=== PATIENT | female | born 1960 | race Caucasian/White ===

== ENCOUNTER 2021-02-11 15:37 | Observation (INO) ==
--- NOTE | 2021-02-11 16:19 | CT Scan Report ---
HEAD CT NONCONTRAST CT DOSE: 537.48 mGy.cm HISTORY: Stroke symptoms. TECHNIQUE: Multiaxial CT images of the head were performed without the use of intravenous contrast. A utomated exposure control was utilized for this study. A dose lowering technique was utilized adheri ng to the principles of ALARA. Comparison: None. Findings: The paranasal sinuses and mastoid air cells are clear. The calvarium and skull base are int act. The ventricles and sulci are within normal limits. There is no mass, hematoma, midline shift, or acute infarct. Impression: No acute intracranial abnormality. ACT 112: Negative or not required by law. Electronically signed by: Adrián Elias M.D. 02/11/2021 4:17 PM
[2021-02-11 16:56] LABS: Hematocrit (blood only) 38.7 % (37-47); Hemoglobin 13.2 g/dL (12.0-16.0); Mean Corpuscular Hemoglobin 30.5 pg (25-34); Mean Corpuscular Hgb Conc 34.1 g/dL (32-36); Mean Corpuscular Volume 89.4 fL (80-100); Mean Platelet Volume 11.9 fL (7.4-10.4); Platelet Count 273 K/uL (130-400); RDW Coefficient of Variation 13.1 % (11.5-14.5); RDW Standard Deviation 43.4 fL (36.4-46.3); Red Blood Count 4.33 M/uL (4.2-5.4); White Blood Count 8.67 K/uL (4.8-10.8)
--- NOTE | 2021-02-11 16:57 | Emergency Department Note ---
Impression & Plan Stroke-like symptoms, Cerebrovascular accident, HTN (hypertension) ED Provider Note NAME: NILSA HALE AGE: 60 SEX: F : 1960 ARRIVES VIA: Walk-In INFORMANT: Patient ED PROVIDER(S): Darian Joshi DO CHIEF COMPLAINT: Right-sided numbness with trouble walking HPI: Patient is a 60-year-old female who presents the to the ER for right-sided paresthesias with trouble walking. Symptoms started yesterday morning around 9 AM. She notes she cannot feel her right side and consequently she is having trouble walking. Includes the entire right leg right arm and right face. She denies any change in vision or headache. No chest pain or shortness of breath. No nausea, vomiting, or diarrhea. No dysuria, urgency, or frequency. No other exacerbating or remitting factors. She is never had this before. History of hyperlipidemia and is a smoker. ROS: See above HPI for pertinent positives & negatives. A total of 10 systems reviewed and were otherwise negative. PAST MEDICAL HISTORY:See Below PAST SURGICAL HISTORY:See Below FAMILY HISTORY:See Below SOCIAL HISTORY:See Below HOME MEDICATIONS:See Below ALLERGIES:See Below VITALS:See Below PHYSICAL EXAMINATION: GENERAL: Sitting up in bed, alert, well appearing, well nourished, no distress, non-toxic EYE EXAM: normal conjunctiva. PERRL and EOM's intact. OROPHARYNX: no exudate, no erythema, lips, buccal mucosa, and tongue normal and mucous membranes are moist NECK: supple, no nuchal rigidity, no adenopathy, non-tender LUNGS: Clear to auscultation. Normal chest wall mechanics HEART: no murmurs, S1 normal and S2 normal ABDOMEN: abdomen soft, non-tender, normo-active bowel sounds, no masses, no rebound or guarding. UPPER EXTREMITIES: upper extremities are grossly normal. LOWER EXTREMITIES: No pitting edema. NEURO EXAM: Normal sensorium, cranial nerves II-XII intact, normal speech, no weakness of arms, no weakness of legs. No drift. Finger to nose intact. Gross sensation intact. [id number] intact. Rapid alternating movements are extremities intact. MEDICAL DECISION MAKING: Patient is a 60-year-old female who presents ER right-sided paresthesias. Trouble walking. IV was established blood work obtained. Labs show no significant leukocytosis or anemia. INR was unremarkable. BMP along with LFTs bilirubin was unremarkable. Troponin was negative. TSH elevated. Free T4 was negative. Covid was negative. CT as well as CT angio of the head and neck showed no culprit lesion. Patient was updated bedside. Symptoms have been present since yesterday. She was discussed with hospitalist and admitted for further work-up of her likely stroke. Pressure was elevated and will continue to tolerate elevated pressures. Triage Nursing notes reviewed. Limited review of prior medical records performed Vital Signs: reviewed and remarkable for HTN Differential diagnosis: Differential Diagnosis includes but is not limited to ischemic Stroke, hemorrhagic stroke, bells palsy, mass, neoplasm, migraine headache, seizure, subarachnoid hemorrhage, TIA, and transient global amnesia. ER treatment provided: See below Diagnostics interpreted by me: ECG: Sinus rhythm rate 76 Normal axis No PVCs QTC 450 Cardiac Monitoring: An order was placed for continuous cardiac monitoring. The monitor shows a rate of 60 with sinus rhythm. Laboratory studies: As stated above and show below. Imaging studies: CT of the head, as well as CTA of the head and neck are unremarkable Consultation(s): Discussed with the hospitalist for further evaluation Procedures: none Critical Care: None Past Med/Surg History Medical History (Updated 02/11/21 @ 22:57 by Darian Joshi DO) Endometriosis Hypothyroidism Tobacco use disorder Surgical History (Updated 02/11/21 @ 19:21 by Ashish Puente MD) History of ovarian resection right Social History (Updated 02/11/21 @ 19:18 by Ashish Puente MD) Smoking Status: Current every day smoker packs per day: 2; Hx Alcohol Use: No Hx Substance Use: No Preferred Language: Mosotho Feels Safe at Home: Yes Allergies Allergies Allergy/AdvReac Type Severity Reaction Status Date / Time latex Allergy Mild ITCHY RASH Verified 02/11/21 18:31 codeine AdvReac Intermediate Vomiting Verified 02/11/21 18:31 ENVIRONMENTAL Allergy Severe ALL Uncoded 02/11/21 18:31 POLLENS, MOLDS, DUST--CAN TRIGGER AN ASTHMA ATTACK. Home Meds Home Medications Medication Instructions Recorded Confirmed Cloves Tabs 1 tab PO DAILY 02/11/21 02/11/21 cholecalciferol (vitamin D3) 0 mcg PO DAILY 02/11/21 02/11/21 [Vitamin D3] elderberry fruit and flower 1 cap PO DAILY 02/11/21 02/11/21 levothyroxine 75 mcg PO DAILY 02/11/21 02/11/21 zinc sulfate 50 mg PO DAILY 02/11/21 02/11/21 Results & Data (ED) Vital Signs Vital Signs - 24 hr 02/11/21 15:41 02/11/21 16:36 02/11/21 16:39 Temperature 36.9 C Temperature Source Temporal Artery Scan Pulse Rate 80 75 79 Pulse Rate [Right Finger] Pulse Rate from SpO2 Sensor 75 79 Pulse Rhythm Respiratory Rate 18 21 16 Respiratory Effort / Characteristics Non-Labored Respiratory Depth Normal Blood Pressure 165/87 H 172/111 H Blood Pressure [Right Arm] Blood Pressure Mean 113 131 Blood Pressure Mean [Right Arm] Pulse Oximetry 99 100 100 Oxygen Delivery Method Room Air Sepsis Recent Fever Within 48 Hours No Sepsis New/Unexplained Change in Mental Status No Sepsis Action Taken by Nursing No Action Required 02/11/21 17:00 02/11/21 17:01 02/11/21 19:42 Temperature Temperature Source Pulse Rate 82 73 Pulse Rate [Right Finger] 69 Pulse Rate from SpO2 Sensor Pulse Rhythm Respiratory Rate 17 21 16 Respiratory Effort / Characteristics Respiratory Depth Blood Pressure 196/103 H Blood Pressure [Right Arm] 160/100 H Blood Pressure Mean 134 Blood Pressure Mean [Right Arm] 120 Pulse Oximetry 99 Oxygen Delivery Method Room Air Sepsis Recent Fever Within 48 Hours Sepsis New/Unexplained Change in Mental Status Sepsis Action Taken by Nursing 02/11/21 21:13 02/11/21 22:14 Temperature Temperature Source Pulse Rate 64 Pulse Rate [Right Finger] 64 Pulse Rate from SpO2 Sensor Pulse Rhythm Regular Respiratory Rate 18 Respiratory Effort / Characteristics Respiratory Depth Blood Pressure Blood Pressure [Right Arm] 170/88 H 157/91 H Blood Pressure Mean Blood Pressure Mean [Right Arm] 115 113 Pulse Oximetry 98 Oxygen Delivery Method Room Air Sepsis Recent Fever Within 48 Hours Sepsis New/Unexplained Change in Mental Status Sepsis Action Taken by Nursing Laboratory Data Result diagrams: 02/11/21 16:40 02/11/21 16:40 Lab Results 02/11/21 02/11/21 02/11/21 Range/Units 16:40 16:40 16:40 WBC 8.67 (4.8-10.8) K/uL RBC 4.33 (4.2-5.4) M/uL Hgb 13.2 (12.0-16.0) g/dL Hct 38.7 (37-47) % MCV 89.4 (80-100) fL MCH 30.5 (25-34) pg MCHC 34.1 (32-36) g/dL RDW Std Deviation 43.4 (36.4-46.3) fL RDW Coeff of [place] 13.1 (11.5-14.5) % Plt Count 273 (130-400) K/uL MPV 11.9 H (7.4-10.4) fL PT 10.5 (9.0-12.0) Seconds INR 1.0 (0.9-1.1) APTT 24.4 (21.0-31.0) Seconds PTT Ratio 0.9 Sodium 138 (136-145) mmol/L Potassium 3.7 (3.5-5.1) mmol/L Chloride 107 (98-107) mmol/L Carbon Dioxide 25 (21-32) mmol/L Anion Gap 6.0 (3-11) BUN 9 (7-18) mg/dl Creatinine 0.62 (0.6-1.2) mg/dl Est Cr Clr Drug Dosing 76.3 ml/min Est GFR ( Amer) 113.6 Est GFR (Non-Af Amer) 98.0 BUN/Creatinine Ratio 15.2 (10-20) Glucose 98 (70-99) mg/dl Calcium 9.3 (8.5-10.1) mg/dl Magnesium 2.0 (1.8-2.4) mg/dl Total Bilirubin 0.5 (0.2-1) mg/dl AST 14 L (15-37) U/L ALT 19 (12-78) U/L Alkaline Phosphatase 147 H (45-117) U/L Troponin I < 0.015 (0-0.045) ng/ml Total Protein 7.4 (6.4-8.2) gm/dl Albumin 4.2 (3.4-5.0) gm/dl Globulin 3.2 (2.5-4.0) gm/dl Albumin/Globulin Ratio 1.3 (0.9-2) TSH 9.030 H (0.300-4.500) uIu/ml Free T4 1.05 (0.8-1.6) ng/dl COVID-19 Eval Order SARS-CoV-2 (PCR) (Negative) Influenza Type A (PCR) (Neg) Influenza Type B (PCR) (Neg) RSV (RT-PCR) (Neg) 02/11/21 02/11/21 Range/Units 18:45 18:45 WBC (4.8-10.8) K/uL RBC (4.2-5.4) M/uL Hgb (12.0-16.0) g/dL Hct (37-47) % MCV (80-100) fL MCH (25-34) pg MCHC (32-36) g/dL RDW Std Deviation (36.4-46.3) fL RDW Coeff of [place] (11.5-14.5) % Plt Count (130-400) K/uL MPV (7.4-10.4) fL PT (9.0-12.0) Seconds INR (0.9-1.1) APTT (21.0-31.0) Seconds PTT Ratio Sodium (136-145) mmol/L Potassium (3.5-5.1) mmol/L Chloride (98-107) mmol/L Carbon Dioxide (21-32) mmol/L Anion Gap (3-11) BUN (7-18) mg/dl Creatinine (0.6-1.2) mg/dl Est Cr Clr Drug Dosing ml/min Est GFR ( Amer) Est GFR (Non-Af Amer) BUN/Creatinine Ratio (10-20) Glucose (70-99) mg/dl Calcium (8.5-10.1) mg/dl Magnesium (1.8-2.4) mg/dl Total Bilirubin (0.2-1) mg/dl AST (15-37) U/L ALT (12-78) U/L Alkaline Phosphatase (45-117) U/L Troponin I (0-0.045) ng/ml Total Protein (6.4-8.2) gm/dl Albumin (3.4-5.0) gm/dl Globulin (2.5-4.0) gm/dl Albumin/Globulin Ratio (0.9-2) TSH (0.300-4.500) uIu/ml Free T4 (0.8-1.6) ng/dl COVID-19 Eval Order CovFluRsv at [facility] SARS-CoV-2 (PCR) NEGATIVE (Negative) Influenza Type A (PCR) Negative (Neg) Influenza Type B (PCR) Negative (Neg) RSV (RT-PCR) Negative (Neg) Administered Medications Discontinued Medications Aspirin (Aspirin 81 Mg Chew) 324 mg PO NOW STA Stop: 02/11/21 19:16 Last Admin: 02/11/21 19:42 Dose: 324 mg Documented by: [id number] Ioversol (Optiray 320 125ml) 120 ml IV ONCE ONE Stop: 02/11/21 17:55 Last Admin: 02/11/21 17:55 Dose: 120 ml Documented by: [id number] Imaging Data Radiologist's Impression: Chest X-Ray 02/11/21 15:44 XR chest 1V portable CLINICAL HISTORY: stroke alert COMPARISON STUDY: No previous studies for comparison. FINDINGS: Lung volumes are normal. Lungs are clear. There is no pneumothorax or pleural effusion. Cardiac size is normal. Mediastinal contours are normal. There is no evidence for pulmonary edema. IMPRESSION: No acute cardiopulmonary findings. ACT 112: Negative or not required by law. Electronically signed by: Abdelrahman Garibay M.D. 02/11/2021 5:[address] 02/11/21 15:[address] DOSE: 537.48 mGy.cm HISTORY: Stroke symptoms. TECHNIQUE: Multiaxial CT images of the head were performed without the use of intravenous contrast. Automated exposure control was utilized for this study. A dose lowering technique was utilized adhering to the principles of ALARA. Comparison: None. Findings: The paranasal sinuses and mastoid air cells are clear. The calvarium and skull base are intact. The ventricles and sulci are within normal limits. There is no mass, hematoma, midline shift, or acute infarct. Impression: No acute intracranial abnormality. ACT 112: Negative or not required by law. Electronically signed by: Adrián Elias M.D. 02/11/2021 4:17 PM Head CTA 02/11/21 16:57 CTA ANGIOGRAPHY OF THE HEAD CLINICAL HISTORY: Cerebrovascular accident. Right arm numbness. COMPARISON STUDY: Head CT performed earlier today. TECHNIQUE: Helical axial images of the head were obtained following uneventful intravenous administration of 120 cc of Optiray 320. Sagittal and coronal reconstructions were viewed as well as maximal intensity projections on an independent 3-D workstation. Automated exposure control was utilized for the study. A dose lowering technique was utilized adhering to the principles of ALARA. CT DOSE: 457.68 mGy.cm FINDINGS: No acute intracranial hemorrhage, midline shift or mass effect is present. Brain volume is normal. Ventricular system is normal. Basal cisterns are patent. There are no extra axial collections. The bilateral M1, M2, A1 and A2 segments are patent. There is no intracranial aneurysm. No central vessel occlusion is noted. There is no dissection within the intracranial vessels. Left vertebral artery is dominant. Posterior circulation is intact. IMPRESSION: Unremarkable CTA of the head. No central vessel occlusion. No intracranial aneurysm. ACT 112: Negative or not required by law. Electronically signed by: Abdelrahman Garibay M.D. 02/11/2021 6:13 PM Neck CTA 02/11/21 16:57 CT ANGIOGRAPHY OF THE NECK WITH CONTRAST CLINICAL HISTORY: Right arm numbness numbness. Cerebrovascular accident. COMPARISON STUDY: No previous studies for comparison. Technique: CT angiography of the carotid and vertebral arteries was obtained using [employer] 320 IV and 3D reconstruction on an independent workstation. NASCET criteria was utilized. Automated exposure control was utilized for the study. A dose lowering technique was utilized adhering to the principles of ALARA. Findings: No cervical lymphadenopathy is present. No cervical spine fracture is noted. The thyroid gland is heterogeneous. Note is made of mild emphysema within visualized portions of the lung apices. There are multiple small subpleural upper lobe nodules that measure up to 5 mm. There is mild plaque of the visualized portions of the aortic arch. The bilateral common carotid, cervical internal carotid and vertebral arteries are patent although the proximal right vertebral artery is suboptimally assessed due to contrast within the adjacent veins. There is no dissection within these vessels. No significant stenosis is noted. There is mild plaque within the proximal left internal carotid artery. The CTA of the head will be reported separately. The left vertebral artery is dominant. IMPRESSION: 1. No stenosis or dissection within the major vessels of the neck. Mild atherosclerotic plaque. 2. Mild emphysema and numerous small subpleural nodules within the lung apices. Nonemergent chest CT is recommended for further evaluation. ACT 112: Negative or not required by law. Electronically signed by: Abdelrahman Garibay M.D. 02/11/2021 6:08 PM Discharge Plan Visit Data Chief Complaint: Stroke/CVA Symptoms Stated Complaint: POSSIBLE STROKE-RIGHT SIDE IS NUMB-DRAGGING R FOOT ED Provider: Darian Joshi Discharge Problem: Stroke-like symptoms, Cerebrovascular accident, HTN (hypertension) Forms Stand Alone Forms: My [facility] [employer] Prescriptions Prescriptions: No Action levothyroxine 75 mcg Tablet 75 mcg PO DAILY RF: 0 cholecalciferol (vitamin D3) [Vitamin D3] 25 mcg (1,000 unit) Capsule 0 mcg PO DAILY RF: 0 zinc sulfate 50 mg zinc (220 mg) Capsule 50 mg PO DAILY RF: 0 elderberry fruit and flower 460-115 mg Capsule 1 cap PO DAILY RF: 0 Cloves Tabs 1 tab PO DAILY RF: 0 Discharge Problem: Cerebrovascular accident Qualifiers: CVA mechanism: unspecified Qualified Code(s): I63.9 - Cerebral infarction, unspecified HTN (hypertension) Qualifiers: Hypertension type: unspecified Qualified Code(s): I10 - Essential (primary) hypertension
[2021-02-11 17:06] LABS: Partial Thromboplastin Ratio 0.9; Partial Thromboplastin Time 24.4 Seconds (21.0-31.0); Prothrombin Time 10.5 Seconds (9.0-12.0)
[2021-02-11 17:13] LABS: Alanine Aminotransferase 19 U/L (12-78); Albumin Level 4.2 gm/dl (3.4-5.0); Aspartate Aminotransferase 14 U/L (15-37); BUN Creatinine Ratio 15.2 (10-20); Blood Urea Nitrogen 9 mg/dl (7-18); Calcium 9.3 mg/dl (8.5-10.1); Carbon Dioxide 25 mmol/L (21-32); Chloride 107 mmol/L (98-107); Creatinine Clr Calc Pharmacy 76.3 ml/min; Est GFR (African American) 113.6; Glucose 98 mg/dl (70-99); Potassium 3.7 mmol/L (3.5-5.1); Sodium 138 mmol/L (136-145)
[2021-02-11 17:17] LABS: Albumin Globulin Ratio 1.3 (0.9-2); Alkaline Phosphatase 147 U/L (45-117); Bilirubin,Total 0.5 mg/dl (0.2-1); Globulin 3.2 gm/dl (2.5-4.0); Total Protein 7.4 gm/dl (6.4-8.2); Troponin I < 0.015 ng/ml (0-0.045)
--- NOTE | 2021-02-11 17:22 | XRay Report ---
XR chest 1V portable CLINICAL HISTORY: stroke alert COMPARISON STUDY: No previous studies for comparison. FINDINGS: Lung volumes are normal. Lungs are clear. There is no pneumothorax or pleural effusion. Car diac size is normal. Mediastinal contours are normal. There is no evidence for pulmonary edema. IMPRESSION: No acute cardiopulmonary findings. ACT 112: Negative or not required by law. Electronically signed by: Abdelrahman Garibay M.D. 02/11/2021 5:20 PM
[2021-02-11] MEDS ORDERED: OPTIRAY 320 125ml IV ONE (17:54)
--- NOTE | 2021-02-11 18:09 | CT Scan Report ---
CT ANGIOGRAPHY OF THE NECK WITH CONTRAST CLINICAL HISTORY: Right arm numbness numbness. Cerebrovascular accident. COMPARISON STUDY: No previous studies for comparison. Technique: CT angiography of the carotid and vertebral arteries was obtained using [employer] 320 IV and 3D reconstruction on an independent workstation. NASCET criteria was utilized. Automated exposure c ontrol was utilized for the study. A dose lowering technique was utilized adhering to the principles of ALARA. Findings: No cervical lymphadenopathy is present. No cervical spine fracture is noted. The thyroid gl and is heterogeneous. Note is made of mild emphysema within visualized portions of the lung apices. T here are multiple small subpleural upper lobe nodules that measure up to 5 mm. There is mild plaque o f the visualized portions of the aortic arch. The bilateral common carotid, cervical internal carotid and vertebral arteries are patent although the proximal right vertebral artery is suboptimally asses sed due to contrast within the adjacent veins. There is no dissection within these vessels. No signif icant stenosis is noted. There is mild plaque within the proximal left internal carotid artery. The C TA of the head will be reported separately. The left vertebral artery is dominant. IMPRESSION: 1. No stenosis or dissection within the major vessels of the neck. Mild atherosclerotic plaque. 2. Mild emphysema and numerous small subpleural nodules within the lung apices. Nonemergent chest CT is recommended for further evaluation. ACT 112: Negative or not required by law. Electronically signed by: Abdelrahman Garibay M.D. 02/11/2021 6:08 PM
--- NOTE | 2021-02-11 18:14 | CT Scan Report ---
CTA ANGIOGRAPHY OF THE HEAD CLINICAL HISTORY: Cerebrovascular accident. Right arm numbness. COMPARISON STUDY: Head CT performed earlier today. TECHNIQUE: Helical axial images of the head were obtained following uneventful intravenous administr ation of 120 cc of Optiray 320. Sagittal and coronal reconstructions were viewed as well as maximal i ntensity projections on an independent 3-D workstation. Automated exposure control was utilized for the study. A dose lowering technique was utilized adhering to the principles of ALARA. CT DOSE: 457.68 mGy.cm FINDINGS: No acute intracranial hemorrhage, midline shift or mass effect is present. Brain volume is normal. Ventricular system is normal. Basal cisterns are patent. There are no extra axial collections . The bilateral M1, M2, A1 and A2 segments are patent. There is no intracranial aneurysm. No central vessel occlusion is noted. There is no dissection within the intracranial vessels. Left vertebral art harmeet is dominant. Posterior circulation is intact. IMPRESSION: Unremarkable CTA of the head. No central vessel occlusion. No intracranial aneurysm. ACT 112: Negative or not required by law. Electronically signed by: Abdelrahman Garibay M.D. 02/11/2021 6:13 PM
--- NOTE | 2021-02-11 19:05 | History & Physical Report ---
Date of Service February 11, 2021 Assessment & Plan (1) Stroke-like symptoms: Ongoing symptoms of right-sided paresthesias - ?CVA versus hypertensive encephalopathy MRI brain without contrast Blood pressure management as below TTE HbA1c and lipid panel with a.m. labs PT/OT. No need for SLT evaluation. Consult neurology (2) Abnormal gait: No objective motor or coordination deficit-suspect her gait is secondary to sensory ataxia from her numbness. PT/OT (3) Elevated blood pressure reading: Blood pressure management dependent on MRI findings. If stroke seen will allow for permissive hypertension. If no findings on MRI will treat systolic blood pressure > 180 with hydralazine overnight. (4) Tobacco use disorder: 2 pack/day smoker. Patient declines nicotine patch. 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 (5) Pulmonary nodules: Recommend outpatient follow-up for this. Discussed with patient. (6) Hypothyroidism: Add TSH to prior labs. Continue levothyroxine 75 mcg p.o. daily (7) DVT prophylaxis: SCDs Admission and Anticipated Discharge Date Admission Date: February 11, 2021 History of Present Illness Chief Complaint: Right sided paresthesias Primary Care Provider: Keegan Wilson Elle Mccann is a 60-year-old female who presents to the ER with right-sided face, arm and right leg numbness. Symptoms started yesterday at 8:30 AM. Initially lasted for 10 to 15 minutes and subsequently fully resolved. She had a total of 5 similar episodes over the course of yesterday. When she went to bed last night her symptoms became persistent and she is still having them at the present time. She does note 1 associated room spinning/dizzy episode around 10 AM today which resolved on sitting down and lasted for any 5 minutes - this does not appear to be associated with any worsening of her other symptoms and was similar to a sensation she had when she had an infection a few years ago. She denies any headache, change in speech/vision/hearing, no facial droop or muscle weakness. She does note dragging her foot when she walks but no weakness. 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 She reports hyperlipidemia which is untreated due to her previous doctor not believing in statins. No significant family history of cardiovascular disease. In the ER she underwent CT head and CT angiogram head/neck were unremarkable. She was referred to medicine for admission ongoing management of left-sided paresthesia and difficulty walking. Allergies Allergy/AdvReac Type Severity Reaction Status Date / Time latex Allergy Mild ITCHY RASH Verified 02/11/21 18:31 codeine AdvReac Intermediate Vomiting Verified 02/11/21 18:31 ENVIRONMENTAL Allergy Severe ALL Uncoded 02/11/21 18:31 POLLENS, MOLDS, DUST--CAN TRIGGER AN ASTHMA ATTACK. Home Medications Medication Instructions Recorded Confirmed Type Cloves Tabs 1 tab PO DAILY 02/11/21 02/11/21 History cholecalciferol (vitamin D3) 0 mcg PO DAILY 02/11/21 02/11/21 History [Vitamin D3] elderberry fruit and flower 1 cap PO DAILY 02/11/21 02/11/21 History levothyroxine 75 mcg PO DAILY 02/11/21 02/11/21 History zinc sulfate 50 mg PO DAILY 02/11/21 02/11/21 History Past Med/Surg History Medical History (Updated 02/11/21 @ 22:57 by Darian Joshi DO) Endometriosis Hypothyroidism Tobacco use disorder Surgical History (Updated 02/11/21 @ 19:21 by Ashish Puente MD) History of ovarian resection right Social History (Updated 02/11/21 @ 19:18 by Ashish Puente MD) Smoking Status: Current every day smoker packs per day: 2; Hx Alcohol Use: No Hx Substance Use: No Preferred Language: Nigerian Feels Safe at Home: Yes Review of Systems Review of Systems: All systems reviewed & are unremarkable except as noted in HPI & below Physical Exam Constitutional: WD/WN, vitals as above Eyes: PERRL, conjunctivae normal, anicteric sclerae no nystagmus ENMT: external ear and nose normal, oropharynx normal Neck: trachea midline, no thyromegaly Respiratory: normal respiratory effort, lungs clear to auscultation Cardiovascular: RRR, no murmur, no edema Gastrointestinal (Abdomen): normal bowel sounds, soft, nontender, no hepatosplenomegaly Musculoskeletal: no cyanosis or clubbing, extremities motor strength 5/5 Skin: no rashes, warm and dry Neurologic: moves all extremities and awake; no focal motor deficits and not confused Speech / Cognition: normal speech Motor/Sensory: + sensory deficit (Non-dermatomal right arm and leg numbness, right face numbness); no tremor and no pronator drift Cranial Nerves: PERRL, EOM intact bilaterally, normal facial strength, tongue midline, normal hearing, able to rotate head bilaterally, able to elevate shoulders bilaterally, no nystagmus and symmetric palate elevation Gait: + wide-based gait (right sided) Coordination: normal giqbrt-[id number] test and normal [id number] test Psychiatric: A+Ox3, euthymic affect Genitourinary: no CVA tenderness Results & Data Results & Data ([facility]) Vital Signs (Past 12 Hours) Vital Signs Temp Pulse Resp BP Pulse Ox 02/11/21 17:01 73 21 196/103 H 02/11/21 17:00 82 17 02/11/21 16:39 79 16 100 02/11/21 16:36 75 21 172/111 H 100 02/11/21 15:41 36.9 C 80 18 165/87 H 99 Diagnostic Findings XR chest 1V portable IMPRESSION: No acute cardiopulmonary findings. HEAD CT NONCONTRAST Impression: No acute intracranial abnormality. CT ANGIOGRAPHY OF THE NECK WITH CONTRAST IMPRESSION: 1. No stenosis or dissection within the major vessels of the neck. Mild atherosclerotic plaque. 2. Mild emphysema and numerous small subpleural nodules within the lung apices. Nonemergent chest CT is recommended for further evaluation. Medications Administered ER medications given: None ECG Indication: other (Strokelike symptoms) Rate (beats per minute): 76 Rhythm: normal sinus Findings: no acute ischemic change Comparison ECG Date: no prior available Code Status & VTE Plan Code Status Full VTE Prophylaxis Plan VTE Prophylaxis will be ordered: No Reason for no VTE drug order: Treatment not indicated Reason for no VTE mechanical prophylaxis: Treatment not indicated PG Care Time/CCT Total # of Minutes Spent Total Time Spent with Patient: Total time spent is greater than 50% in coordination of care (as documented) at patient's floor/unit and/or counseling patient: Coding Level of Care Code 11943 OBS Care - Level 3 Diagnoses Stroke-like symptoms R29.90 Abnormal gait R26.9 Elevated blood pressure reading R03.0 Tobacco use disorder F17.200 Pulmonary nodules R91.8 Hypothyroidism E03.9 Hypothyroidism type: acquired DVT prophylaxis Z29.9 (1) Hypothyroidism Hypothyroidism type: acquired Qualified Code(s): E03.9 - Hypothyroidism, unspecified
[2021-02-11] MEDS ORDERED: ASPIRIN 81 MG CHEW PO STA (19:15)
[2021-02-11 19:59] LABS: T4 Free Thyroxine 1.05 ng/dl (0.8-1.6)
[2021-02-11 20:16] LABS: Influenza A virus by PCR Negative (Neg); Influenza B virus by PCR Negative (Neg); RSV by PCR Negative (Neg); SARS CoV2 RNA(COVID-19) InHosp NEGATIVE (Negative)
[2021-02-11] MEDS ORDERED: ATORVASTATIN 40 MG TAB PO SCH (23:15)
[2021-02-11] MEDS ORDERED: ACETAMINOPHEN 325 MG TAB PO PRN (23:45)
[2021-02-11] MEDS ORDERED: PHARMACIST DISCHARGE MED REC CONSULT PRN (23:45)
[2021-02-12] MEDS ORDERED: LEVOTHYROXINE SODIUM 75 MCG TABLET PO SCH (06:30)
--- NOTE | 2021-02-12 07:17 | Magnetic Resonance Report ---
MRI OF THE BRAIN WITHOUT IV CONTRAST CLINICAL HISTORY: Right-sided paresthesias. COMPARISON STUDY: CT of the brain dated 02/11/2021. TECHNIQUE: MRI of the brain was performed utilizing various T1 and T2-weighted sequences in the axial , sagittal, and coronal planes. IV contrast was not administered for this examination. FINDINGS: Brain parenchyma: There is a 12 mm focus of restricted diffusion identified in the posterior left agustina lamus consistent with acute to subacute ischemia. No additional foci of restricted diffusion are iden tified. There is mild subcortical and periventricular microangiopathic disease. There is no hemorrhag e or mass effect. Hamilton-white matter differentiation is preserved. No extra-axial fluid collection is seen. The cerebellar tonsils are normal in configuration. Ventricles, sulci, and cisterns: Normal in configuration. Pituitary and sella: Unremarkable. Intracranial vasculature: Normal flow voids are maintained at the skull base. Orbits: The bony orbits are grossly intact. Orbital contents are normal in appearance. Sinuses and mastoids: Clear. Calvarium: Unremarkable. Cervical cord: Partially visualized cervical spinal cord is normal in morphology and signal intensity . IMPRESSION: 1. Findings are consistent with an acute to subacute lacunar infarct in the posterior left thalamus. 2. No additional foci of acute ischemia are identified. 3. There is no hemorrhage or mass effect. ACT 112: Negative or not required by law. Electronically signed by: Sabino Harris M.D. 02/12/2021 7:16 AM
[2021-02-12 07:52] LABS: Basophils # (auto) 0.02 K/uL (0-0.2); Basophils % (auto) 0.3 %; Eosinophils # (auto) 0.05 K/uL (0-0.5); Eosinophils % (auto) 0.7 %; Hematocrit (blood only) 38.1 % (37-47); Immature Granulocytes # (auto) 0.01 K/uL (0.00-0.02); Immature Granulocytes % (auto) 0.1 %; Lymphocytes % (auto) 19.7 %; Mean Corpuscular Hemoglobin 30.7 pg (25-34); Mean Corpuscular Hgb Conc 34.1 g/dL (32-36); Mean Corpuscular Volume 89.9 fL (80-100); Mean Platelet Volume 11.7 fL (7.4-10.4); Monocytes # (auto) 0.71 K/uL (0.11-0.59); Monocytes % (auto) 9.3 %; Neutrophils # (auto) 5.32 K/uL (1.4-6.5); Neutrophils % (auto) 69.9 %; Platelet Count 262 K/uL (130-400); RDW Coefficient of Variation 13.3 % (11.5-14.5); Red Blood Count 4.24 M/uL (4.2-5.4); White Blood Count 7.61 K/uL (4.8-10.8)
[2021-02-12 08:31] LABS: Estimated Average Glucose 114 mg/dl; Hemoglobin A1C 5.6 % (4.5-5.6)
[2021-02-12 08:35] LABS: BUN Creatinine Ratio 17.8 (10-20); Calcium 9.2 mg/dl (8.5-10.1); Creatinine Clr Calc Pharmacy 77.6 ml/min; Est GFR (African American) 114.2; Est GFR (Non-African American) 98.5; Potassium 3.6 mmol/L (3.5-5.1)
[2021-02-12] MEDS ORDERED: ASPIRIN 81 MG ECTAB PO SCH (09:00)
[2021-02-12] MEDS ORDERED: CHOLECALCIFEROL 1,000 UNITS 25 MCG TAB PO SCH (09:00)
--- NOTE | 2021-02-12 11:12 | Hospitalist Progress Note ---
Date of Service February 12, 2021 Assessment & Plan Admission and Anticipated Discharge Date Admission Date: February 11, 2021 Subjective Attending: Dr. Miguel Patient began having symptoms of weakness 2 to 3 days ago. Yesterday she had complete flaccidness of the right side and was unable to use the right side. S he presented to the emergency department and MRI revealed findings consistent with an acute to subacute lacunar infarct in the posterior left thalamus. On examination, patient has no neurological deficits. She is seen ambulating in the hallways with no gait change. She has no difficulty with rapid alternating movements or cerebellar function. She has no dysphagia and had no difficulty with breakfast. She denies headache. She has no visual changes. She has no acute complaints. Review of Systems Review of Systems: All systems reviewed & are unremarkable except as noted in Subjective Physical Exam Physical Exam: GENERAL : No acute distress EYES: No icterus, gaze conjugate NOSE: No evidence of epistaxis MOUTH: No lesions or candidiasis NECK: Supple LUNGS: Clear to auscultation bilaterally. No adventitious breath sounds. HEART: Regular, rate controlled ABDOMEN: Soft, NT, ND, BS Present EXTREMITIES: No LE edema, pedal pulses intact NEURO: A&OX3 Results & Data Results & Data ([facility]) Vital Signs (Past 12 Hours) Vital Signs Temp Pulse Pulse Resp BP Pulse Ox 02/12/21 07:59 36.8 C 78 18 138/76 99 02/12/21 07:05 69 02/12/21 03:39 36.6 C 73 16 142/72 H 93 02/12/21 00:19 60 02/11/21 23:51 36.6 C 73 18 169/103 H 96 Laboratory Results 02/12/21 07:26 02/12/21 07:26 PG Care Time/CCT Total # of Minutes Spent Total Time Spent with Patient: Total time spent is greater than 50% in coordination of care (as documented) at patient's floor/unit and/or counseling patient: Coding
--- NOTE | 2021-02-12 14:44 | Neurology Consultation ---
Date of Consultation February 12, 2021 Assessment & Plan (1) Thalamic stroke: Elle Mccann is a 60 yo woman w/ PMH of HTN, HLD, hypothyroidism, tobacco abuse and endometriosis who p/t [facility] with acute onset of right-sided numbness. 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 - MRI brain: subacute infarct in the left lateral thalamus, mild to moderate SVID - TTE: pending (if unremarkable, ok for d/c home from a neurological standpoint) - Telemetry: pending - A1c: 5.6 - FLP: 191 - Troponin, TSH: negative, elevated TSH Stroke Management: - Acute treatment: ASA - Continuous cardiac monitoring, recommend 30 day event monitor as outpatient if telemetry here unrevealing - Vitals, Neurochecks, NIHSS per unit routine - BP parameters: SBP CAP 180, consider starting BP meds with goal normotension over next 3-4 days - Complete ischemic stroke workup with TTE without bubble (ordered) - Consult speech, PT, OT for supportive management - Will equal opportunity counselor concerning stroke education, smoking cessation, healthy diet, physical activity, weight loss - Follow up with PCP for assistance with outpatient goals (BP <130/80, LDL <70, A1c <7) - Follow up in neurology clinic in 6-8 weeks with NILO Moncada - Work with PCP on hypothyroidism and smoking cessation Secondary Stroke Prevention: - Antiplatelet: ASA 81mg po daily - Anticoagulation: Not indicated at this time - Statin: Atorvastatin 80mg daily HTN: - BP parameters, as above - Start medications with goal of lowering BP to normotension over next 3-4 days FEN/GI: - Diet: Cardiac HH diet and PO meds given absence of bulbar signs or symptoms - Monitor lytes and replete PRN Glucose Control: - Sliding scale insulin and accuchecks per primary team to avoid hyperglycemia Thank you for this interesting consult. Plan of care was discussed with primary team. Please call with any questions. (2) HTN (hypertension): (3) Hypothyroidism: (4) Tobacco use disorder: History of Present Illness Attending Physician: Toño Miguel, DO History of Present Illness Elle Mccann is a 60 yo woman w/ PMH of HTN, HLD, hypothyroidism, tobacco abuse and endometriosis who p/t [facility] with acute onset of right-sided numbness. 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 In the ED, she was afebrile, BP 165/87, heart rate 80, respiratory rate 18, satting 99% room air. Labs notable for WBC 8.67, hemoglobin 13.2 with MCV 89.4, platelets 273, sodium 138, potassium 3.7, creatinine 0.60, glucose 98, INR 1, LFTs within normal except for mildly elevated alkaline phosphatase 147, troponin negative, TSH elevated at 9.03 with normal free T4, Covid negative. Imaging independently reviewed. CT head shows no hemorrhage or hypodensity. 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 MRI brain shows a subacute infarct in the left lateral thalamus, mild to moderate SVID. She was given aspirin 324mg and admitted for further workup. On examination, she reports that she was in her normal state of health until ~9am on 02/10/21 when she had acute onset of right face/arm/leg numbness that lasted about 2 hours before resolving. It then recurred and persisted until presentation to the ED yesterday. She reports that she currently has no residual neurological symptoms and has been up walking the hallways. Reports smoking 2 ppd x 40+yrs, rare ethoh, no illicits, only medical history of HLD and hypothyroidism. Interested in quitting smoking. Does not take AP/AC at home. Patient Features: Admission NIHSS: 2 Admission Modified Sandie Scale: 0 Time patient last seen well: 9am on 02/10/21 Wake up stroke: No Intubation status: Not intubated Stroke Risk Factors: Hypertension: Y Hyperlipidemia: Y Atrial Fib: N Tobacco: Y Diabetes: N Taking NOAC or warfarin: N Allergies Allergy/AdvReac Type Severity Reaction Status Date / Time latex Allergy Mild ITCHY RASH Verified 02/11/21 18:31 codeine AdvReac Intermediate Vomiting Verified 02/11/21 18:31 ENVIRONMENTAL Allergy Severe ALL Uncoded 02/11/21 18:31 POLLENS, MOLDS, DUST--CAN TRIGGER AN ASTHMA ATTACK. Home Medications Medication Instructions Recorded Confirmed Type Cloves Tabs 1 tab PO DAILY 02/11/21 02/11/21 History cholecalciferol (vitamin D3) 0 mcg PO DAILY 02/11/21 02/11/21 History [Vitamin D3] elderberry fruit and flower 1 cap PO DAILY 02/11/21 02/11/21 History levothyroxine 75 mcg PO DAILY 02/11/21 02/11/21 History zinc sulfate 50 mg PO DAILY 02/11/21 02/11/21 History Patient History Medical History Endometriosis Hypothyroidism Tobacco use disorder Surgical History History of ovarian resection right Social History Smoking Status: Current every day smoker packs per day: 2; Second Hand Exposure: No; Hx Alcohol Use: Yes Alcohol type: beer and wine Hx Substance Use: No Preferred Language: Bengali 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 Exam (Neuro) Physical Exam: General Exam: GEN: NAD, lying down in examination bed. HEENT: No conjunctival injection, no rhinorrhea. CV: RRR on monitor, no significant edema. PULM: Nonlabored respirations on room air. Neuro Exam: MS: Awake and Alert. Oriented to person, place, and date. Speech fluent and appropriate without dysarthria or paraphasic errors. Language intact including naming, comprehension, repetition. Cognition and memory grossly intact. Attention intact. No neglect. CN: Visual hoff full, + blink to threat bilaterally. No extinction to double simultaneous stimuli. Unable to visualize fundi on fundoscopic exam. PERRLA OU. EOMI without nystagmus. Facial sensation intact to LT. Facial muscles full and symmetric. Hearing intact to conversation. Shoulder shrug normal. Tongue midline. MOTOR: Normal bulk and tone. No pronator drift. All extremities antigravity without drift. REFLEXES: 1+ at biceps, triceps, brachioradialis, trace patella, and trace Achilles bilaterally. Flexor plantar responses bilaterally. SENSORY: Intact to LT/vibration throughout, no extinction to double simultaneous stimuli. COORDINATION: No dysmetria or ataxia on [id number] bilaterally. Normal Ronak bilaterally. GAIT: Deferred due to physical status. NIH STROKE SCALE 1A. Level of Consciousness (0-3) = 0 1B. LOC Questions (0-2) = 0 1C. LOC Commands (0-2) = 0 2. Best Horizontal Gaze (0-2) = 0 3. Visual Hoff (0-3) = 0 4. Facial Palsy (0-3) = 0 5. Motor Arm Right (0-4) = 0 Left (0-4) = 0 6. Motor Leg Right (0-4) = 0 Left (0-4) = 0 7. Limb Ataxia (0-2) = 0 8. Sensory (0-2) = 0 9. Best Language (0-3) = 0 10. Dysarthria (0-2) = 0 11. Extinction and Inattention (0-2) = 0 NIHSS TOTAL = 0 Results & Data ([facility]) Vital Signs (Past 12 Hours) Vital Signs Temp Pulse Pulse Resp BP Pulse Ox 02/12/21 11:29 36.7 C 63 18 151/78 H 98 02/12/21 07:59 36.8 C 78 18 138/76 99 02/12/21 07:05 69 02/12/21 03:39 36.6 C 73 16 142/72 H 93 PG Care Time/CCT Total # of Minutes Spent Total Time Spent with Patient: Total time spent is greater than 50% in coordination of care (as documented) at patient's floor/unit and/or counseling patient: 60 Coding Level of Care Code 52612 Office/Outpt Visit, New Diagnoses Thalamic stroke I63.9 HTN (hypertension) I10 Hypertension type: unspecified Hypothyroidism E03.9 Hypothyroidism type: acquired Tobacco use disorder F17.200 (1) Hypothyroidism Hypothyroidism type: acquired Qualified Code(s): E03.9 - Hypothyroidism, unspecified (2) HTN (hypertension) Hypertension type: unspecified Qualified Code(s): I10 - Essential (primary) hypertension
--- NOTE | 2021-02-12 16:49 | XCELERA ---
[id number]
[2021-02-12] MEDS ORDERED: STROKE PATIENT DISCHARGE STA (18:26)
--- NOTE | 2021-02-12 18:27 | Discharge Summary ---
Date of Service February 12, 2021 Admission HPI Per Admitting Provider Elle Mccann is a 60-year-old female who presents to the ER with right-sided face, arm and right leg numbness. Symptoms started yesterday at 8:30 AM. Initially lasted for 10 to 15 minutes and subsequently fully resolved. She had a total of 5 similar episodes over the course of yesterday. When she went to bed last night her symptoms became persistent and she is still having them at the present time. She does note 1 associated room spinning/dizzy episode around 10 AM today which resolved on sitting down and lasted for any 5 minutes - this does not appear to be associated with any worsening of her other symptoms and was similar to a sensation she had when she had an infection a few years ago. She denies any headache, change in speech/vision/hearing, no facial droop or muscle weakness. She does note dragging her foot when she walks but no weakness. 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 She reports hyperlipidemia which is untreated due to her previous doctor not believing in statins. No significant family history of cardiovascular disease. In the ER she underwent CT head and CT angiogram head/neck were unremarkable. She was referred to medicine for admission ongoing management of left-sided paresthesia and difficulty walking. Admission Exam Per Admitting Provider Constitutional: WD/WN, vitals as above Eyes: PERRL, conjunctivae normal, anicteric sclerae no nystagmus ENMT: external ear and nose normal, oropharynx normal Neck: trachea midline, no thyromegaly Respiratory: normal respiratory effort, lungs clear to auscultation Cardiovascular: RRR, no murmur, no edema Gastrointestinal (Abdomen): normal bowel sounds, soft, nontender, no hepatosplenomegaly Musculoskeletal: no cyanosis or clubbing, extremities motor strength 5/5 Skin: no rashes, warm and dry Neurologic: moves all extremities and awake; no focal motor deficits and not confused Speech / Cognition: normal speech Motor/Sensory: + sensory deficit (Non-dermatomal right arm and leg numbness, right face numbness); no tremor and no pronator drift Cranial Nerves: PERRL, EOM intact bilaterally, normal facial strength, tongue midline, normal hearing, able to rotate head bilaterally, able to elevate shoulders bilaterally, no nystagmus and symmetric palate elevation Gait: + wide-based gait (right sided) Coordination: normal [id number]-[id number] test and normal [id number] test Psychiatric: A+Ox3, euthymic affect Genitourinary: no CVA tenderness Principal Diagnosis Thalmic stroke Discharge Exam GENERAL : No acute distress EYES: No icterus, gaze conjugate NOSE: No evidence of epistaxis MOUTH: No lesions or candidiasis NECK: Supple LUNGS: CTA B/L, no wheezes, rales or rhonchi HEART: Regular, rate controlled ABDOMEN: Soft, NT, ND, BS Present EXTREMITIES: No LE edema, pedal pulses intact NEURO: A&OX3. No gross neurological deficits post Thalmic stroke. Patient seen walking frequently throughout the day on the hospital [place] with no difficulty or change in gait. No aphasia. Cranial nerves II through XII appear grossly intact without focal deficit. Discharge Data Allergies Allergy/AdvReac Type Severity Reaction Status Date / Time latex Allergy Mild ITCHY RASH Verified 02/11/21 18:31 codeine AdvReac Intermediate Vomiting Verified 02/11/21 18:31 ENVIRONMENTAL Allergy Severe ALL Uncoded 02/11/21 18:31 POLLENS, MOLDS, DUST--CAN TRIGGER AN ASTHMA ATTACK. Consultations 02/11/21 16:53 ED Decision to Admit Stat 02/11/21 23:45 Consult Neurology Routine Ordered Studies 02/11/21 15:44 CT head/brain wo con Stat 02/11/21 16:57 CT angio head w con Stat CT angio neck with con Stat 02/11/21 18:53 MR brain wo con Urgent Hospital Course (1) Thalamic stroke: Gait disturbance is resolved No TPA Neurology consulted. Appreciate Dr. Velásquez's input. CT head with no hemorrhagic transformation MRI of the brain showed subacute infarct in left lateral thalamus with mild to moderate SVID Echocardiogram with no acute findings or PFO Discharged home on aspirin and statin Follow-up with neurology in 6 to 8 weeks with Lauren Guido PA-C Discussed need for tobacco abstention and discharged home with Rx for nicotine patches 21 mg for 7 days, 14 mg for 7 days, 7 mg for 7 days then stop (2) HTN (hypertension): Permissive hypertension while inpatient Discussed outpatient management and need for antihypertensive Patient deferred at this time but stated she will discuss it with her PCP on discharge Systolic pressure ranging from 138-151 on the day of discharge (3) Abnormal gait: Resolved Continue ambulate as tolerated (4) Pulmonary nodules: Outpatient follow-up Discussed need for complete tobacco abstention Discharged with nicotine patch program (5) Hypothyroidism: Levothyroxine (6) Tobacco use disorder: Discussed need for complete abstention secondary to acute stroke and hypertensive issues Discharge on nicotine patch for 21 days as listed above Patient to discuss other support systems with PCP 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 Encouraged her to completely stop Total Time Total Time Spent Total Time Spent (In Minutes): 50 Total Time Includes: Examination of the Patient, Discharge Planning and Medication Reconciliation Discharge Plan Discharge Items Patient Disposition: Home - Self-Care Reason For Visit: STROKE LIKE SYMPTOMS Discharge Diagnosis: Thalamic stroke Activity: Resume your previous activity Lifting: Gradually increase as tolerated Bathing: No limitations Sexual Activity: After one week Exercise/Sports: Gradually increase as tolerated Weightbearing: Full weightbearing Non-emergency contact: Primary Care Provider Call non-emergency contact if: you have any medication questions and your symptoms worsen Follow-up/Referrals: Keegan Wilson [Primary Care Provider] - Diet: Heart Healthy Addtl Attending Provider Instructions: You were admitted with right-sided weakness and found to have a thalamic stroke. Over the course of your admission you have completely resolved your symptoms. You were started on aspirin 324 mg. You were then converted over to aspirin 81 mg. You are also given atorvastatin 40 mg by mouth. These medications should be continued on discharge for secondary stroke prevention. At this time, anticoagulation with blood thinners is not indicated. On discharge, you should follow-up with your family physician. Good blood pressure control is very important as well as lifestyle changes including quitting smoking. On discharge, you can buy nicotine patches [id number]. * You should use 21 mg patches for the first 7 days for 12 hours and then remove at night each night. * You should then use 14 mg patches for the second 7-day period and also remove at night. * Decreased to 7 mg patches for the third 7-day period and remove at night. * It is very important that you do not smoke cigarettes while the patch is in place. After the 21 days you should quit smoking cold turkey Please talk to your family doctor about other support systems for stopping smoking. Pending Studies at Discharge: No Stand-Alone Forms: Medications to Prevent Stroke, [facility], Work/School Release (Inpt), Smoking Cessation Medications and DC Order Prescriptions: New atorvastatin 40 mg Tablet 40 mg PO QPM Qty: 30 RF: 0 aspirin 81 mg Tablet,Delayed Release (Dr/Ec) 81 mg PO QAM Qty: 30 RF: 0 Continued levothyroxine 75 mcg Tablet 75 mcg PO DAILY RF: 0 cholecalciferol (vitamin D3) [Vitamin D3] 25 mcg (1,000 unit) Capsule 0 mcg PO DAILY RF: 0 zinc sulfate 50 mg zinc (220 mg) Capsule 50 mg PO DAILY RF: 0 elderberry fruit and flower 460-115 mg Capsule 1 cap PO DAILY RF: 0 Cloves Tabs 1 tab PO DAILY RF: 0 Discharge Orders: Discharge Order (Routine); Ordered 02/12/21 Ordered By: Sabino Phelan Admission Data Admit Date/Time: 02/11/21 19:00 Attending Provider: Toño Miguel Admit Provider: Ashish Puente Primary Care Provider: Keegan Wilson Other Providers: Ashish Puente ; Melissa Velásquez Other Interventions: Discharge Summary Assessment (RN) Last Done: 02/12/21 18:12 Supervising Physician Co-Signing Physician Notes Patient seen and examined on the day of discharge. I agree with the discharge summary by Sabino CORCORAN. I have reviewed the chart including labs, imaging and plans for discharge. patient with thalamic stroke, but all symptoms resolved appreciate neurology consult - Thalamic stroke, acute: symptoms resolved, ambulating well, no speech issues, eating and drinking well discharge on aspirin, statin therapy follow up with PCP for blood pressure check tobacco cessation counseling, provided script for nicotine patches for full details see d/c summary Coding Level of Care Code D/C Day Management >30 mins Diagnoses Thalamic stroke I63.9 HTN (hypertension) I10 Hypertension type: unspecified Abnormal gait R26.9 Pulmonary nodules R91.8 Hypothyroidism E03.9 Hypothyroidism type: acquired Tobacco use disorder F17.200 Time Spent (min) 50
--- NOTE | 2021-02-12 18:41 | Pharmacy Report ---
Pharmacist Stroke Counseling - Date of Service February 12, 2021 - Scope: Pharmacy has been consulted to provide medication discharge counseling for this patient admitted with [ischemic stroke] [hemorrhagic stroke] [transient ischemic attack] as per the Pharmacist Discharge Counseling for Stroke Patients [employer] . - Medications on Discharge: Home Medications Medication Instructions Recorded Confirmed Cloves Tabs 1 tab PO DAILY 02/11/21 02/11/21 cholecalciferol (vitamin D3) 0 mcg PO DAILY 02/11/21 02/11/21 [Vitamin D3] elderberry fruit and flower 1 cap PO DAILY 02/11/21 02/11/21 levothyroxine 75 mcg PO DAILY 02/11/21 02/11/21 zinc sulfate 50 mg PO DAILY 02/11/21 02/11/21 New Rx's Medication Instructions Recorded aspirin 81 mg PO QAM #30 tab 02/12/21 atorvastatin 40 mg PO QPM #30 tab 02/12/21 - Action: The above medications, specifically ones for stroke treatment/prophylaxis, have been reviewed in detail with the patient prior to discharge. This includes nikos cation, common adverse reactions, drug interactions, and medication administration. Medication counseling has been employed using the teach-back method to ensure understanding. - Outcome: The patient have demonstrated understanding of the medications. Additional comments: Spoke over the phone with patient today- she was very pleasant and receptive to counseling. Reviewed new medications to prevent stroke including Aspirin, Atorvastatin. Discussed why they are being used and common side effects. Reviewed how to use the medications, what to do if doses are missed, common drug interactions, common side effects, what to watch out for while using the medications. Pt verbalized understanding and restated the wheat points of each medication. Thank you for allowing pharmacy to be involved in the care of this patient. Please call [phone] with any additional questions
--- NOTE | 2021-02-12 22:18 | Electrocardiogram Report ---
Test Reason : Blood Pressure : / mmHG Vent. Rate : 076 BPM Atrial Rate : 076 BPM P-R Int : 164 ms QRS Dur : 078 ms QT Int : 400 ms P-R-T Axes : 057 -01 049 degrees QTc Int : 450 ms Normal sinus rhythm Normal ECG No previous ECGs available Confirmed by Phoenix Grullon ([id number]) on 02/12/2021 10:18:02 PM Referred By: REFERRED SELF Confirmed By:Phoenix Grullon
== END 2021-02-12 19:08 | disposition home or self-care (01) ==
LOC: ED 15:37 → 2N 15:37 → SUATTDRO 19:00 → 2N 23:08